=== PATIENT | female | born 1990 | race Native Hawaiian/Other Pacific Islander ===

== ENCOUNTER → 2016-10-17 | Outpatient (CLI) | payer OTHER ==
[~2016-10-17] MED LIST: AZIT250T6 PO; DSS100 PO; FERR-72 PO; IBUP-2070 PO; PREN1TAB80 PO
== END | disposition home or self-care (01) ==
LOC: RADPV 13:35
PROVIDERS: ATTEND Obstetrics & Gynecology
DX: O99.89 Other specified diseases and conditions complicating pregnancy, childbirth and the puerperium (principal); R10.2 Pelvic and perineal pain
CPT/HCPCS: 76830; 76856